=== PATIENT | male | born 1975 | race Caucasian/White ===

== ENCOUNTER 2022-07-14 16:08 | Inpatient (IN) | payer MEDICARE, MEDICAID ==
[~2022-07-14] VITALS: Ht 167.6 cm; Wt 95.7 kg
[~2022-07-14 16:08] MED LIST: ASEN10TA14 SL; ATOR40TA28 PO; BUPR-93 PO; CETI10CA PO; DIVA-112 PO; DOXA4TAB2 PO; ESCI20TA87 PO; FLUT220HFA IH; INSU100C6 SQ; LEVO100T4 PO; LORA1TAB3 PO; METO25 PO; MONT-35 PO; NIAC250T9 PO; QUET100T PO; TOPI200T PO; TRAZ-252 PO; ZOLP10TA8 PO; [UNRECOGNIZED DRUG - CODE] PO
[2022-07-14] MEDS ORDERED: OLAN10TA74 PO (17:45)
[2022-07-14] MEDS ORDERED: FINA-27 PO (17:45)
[2022-07-14] MEDS ORDERED: BUSP10TA23 PO (17:45)
[2022-07-14] MEDS ORDERED: LURA60TA PO (17:45)
[2022-07-14 17:51] LABS: APPEARANCE,URINE CLEAR (CLEAR); BILIRUBIN,URINE NEGATIVE (NEGATIVE); GLUCOSE, URINE (UA) >=1000 mg/dL (NEGATIVE); KETONES,URINE TRACE mg/dL (NEGATIVE); LEUKOCYTE ESTERASE ,URINE NEGATIVE (NEGATIVE); NITRATE,URINE NEGATIVE (NEGATIVE); OCCULT BLOOD,URINE NEGATIVE (NEGATIVE); PH,URINE 5.5 (5.0-8.0); PROTEIN,URINE TRACE mg/dL (NEGATIVE); SPECIFIC GRAVITIY, URINE 1.032 (1.003-1.030); UROBILINOGEN,URINE <=1.0 mg/dL (<=1.0)
[2022-07-14 17:56] LABS: AMPHET/METH SCREEN,URINE NEGATIVE (NEGATIVE); BARBITURATE SCREEN, URINE NEGATIVE (NEGATIVE); BENZODIAZEPINES SCREEN,URINE NEGATIVE (NEGATIVE); CANNABINOID SCREEN,URINE NEGATIVE (NEGATIVE); COCAINE SCREEN,URINE NEGATIVE (NEGATIVE); METHADONE SCREEN, URINE NEGATIVE (NEGATIVE); OPIATE SCREEN,URINE NEGATIVE (NEGATIVE); PHENCYCLIDINE SCREEN,URINE NEGATIVE (NEGATIVE)
[2022-07-14 18:04] LABS: NEUTROPHILS # (AUTO) 6.9 K/uL (1.8-7.7)
[2022-07-14 18:20] LABS: BACTERIA,URINE None Seen /HPF (None Seen); CALCIUM OXALATE CRYSTALS,UR Few /LPF (None Seen); RBC,URINE None Seen /HPF (0-2)
[2022-07-14 18:21] LABS: WBC,URINE 0-2 /HPF (0-5)
[2022-07-14 18:23] LABS: BASOPHILS % (AUTO) 0.6 % (0.0-2.0); EOSINOPHILS % (AUTO) 1.4 % (1.0-6.0); HEMATOCRIT 48.2 % (41-53); HEMOGLOBIN 16.5 g/dL (13.5-17.5); LYMPHOCYTES # (AUTO) 2.2 K/uL (1.0-4.8); LYMPHOCYTES % (AUTO) 21.3 % (22.0-44.0); MEAN CORPUSCULAR HEMOGLOBIN 31.4 pg (26.0-34.0); MEAN CORPUSCULAR HGB CONC 34.2 G/dL (31.0-37.0); MEAN CORPUSCULAR VOLUME 92 fL (80-100); NEUTROPHILS % (AUTO) 66.7 % (40.0-70.0); PLATELET COUNT (AUTO) 160 K/uL (150-450); RED BLOOD CELL COUNT(AUTO) 5.24 MIL/uL (4.50-5.90)
[2022-07-14 18:35] LABS: ANION GAP 5 mmol/L (8-16); CALCIUM, TOTAL 9.2 mg/dL (8.8-10.5); CARBON DIOXIDE 27 mmol/L (22-29); CHLORIDE 104 mmol/L (98-107); GLUCOSE,RANDOM 184 mg/dL (70-110); POTASSIUM 3.8 mmol/L (3.5-5.1); SODIUM SERUM 136 mmol/L (136-145); UREA NITROGEN, BLOOD 12 mg/dL (7-18)
[2022-07-14 18:36] LABS: GLOMERULAR FILTR. RATE CALC > 60 mL/min (>60)
[2022-07-14 18:46] LABS: COVID AG,FIA SOURCE NASOPHARYNGEAL
[2022-07-14 18:49] LABS: ALANINE AMINOTRANSFERASE 29 U/L (12-78); ALKALINE PHOSPHATASE 90 U/L (46-116); ASPARTATE AMINOTRANSFERASE 20 U/L (15-37); BILIRUBIN,TOTAL 0.5 mg/dL (0.1-1.0); THYROID STIMULATING HORMONE 1.31 uIU/mL (0.36-3.74); TOTAL PROTEIN, SERUM 7.3 g/dL (6.4-8.2)
[2022-07-14 18:57] LABS: PLATELET MORPHOLOGY COMMENT LARGE PLTS PRESENT
[2022-07-14 19:06] LABS: CREATINE KINASE, TOTAL ONLY 84 U/L (39-308)
[2022-07-14] MEDS ORDERED: HALOPERIDOL 5 MG TABLET PO PRN (23:15)
[2022-07-15 02:23] VITALS: BP 139/89
[2022-07-15 02:36] VITALS: BP 139/89
[2022-07-15] MEDS ORDERED: MAGNESIUM HYDROXIDE SUSPENSION 30 ML UDCUP PO PRN (07:15)
[2022-07-15] MEDS ORDERED: ACETAMINOPHEN 325 MG TABLET PO PRN (07:15)
[2022-07-15] MEDS ORDERED: MAG HYDROX/AL HYDROX/SIMETH ES 30 ML SUSPENSION UDCUP PO PRN (07:15)
[2022-07-15] MEDS ORDERED: PETROLATUM,WHITE 28 GM JELLY TP PRN (07:15)
[2022-07-15] MEDS ORDERED: IBUPROFEN 400 MG TABLET PO PRN (07:15)
[2022-07-15] MEDS ORDERED: NICOTINE 14 MG/24 HOUR PATCH TD PRN (07:15)
[2022-07-15] MEDS ORDERED: LOPERAMIDE HCL 2 MG CAPSULE PO PRN (07:15)
[2022-07-15] MEDS ORDERED: DOCUSATE SODIUM 100 MG CAPSULE PO PRN (07:15)
[2022-07-15] MEDS ORDERED: GuaiFENesin/D-METHORPHAN [SUGAR-FREE] 200-20MG/10 ML SYRUP UDCUP PO PRN (07:15)
[2022-07-15] MEDS ORDERED: CloNIDine HCL 0.1 MG TABLET PO PRN (07:15)
[2022-07-15] MEDS ORDERED: ALBUTEROL SULFATE HFA 90 MCG/PUFF 8 GM INHALER IH PRN (07:15)
[2022-07-15] MEDS ORDERED: ONDANSETRON HCL 4 MG TABLET PO PRN (07:15)
[2022-07-15 09:25] VITALS: BP 138/81
[2022-07-15] MEDS: MONTELUKAST SODIUM 10 MG TABLET PO SCH (09:28)
[2022-07-15] MEDS: FLUTICASONE/VILANTEROL 200-25 MCG/INH INHALER [14] IH SCH (09:28)
[2022-07-15] MEDS: FINASTERIDE 5 MG TABLET PO SCH (09:28)
[2022-07-15] MEDS: BuPROPion HCL 150 MG SR TABLET PO SCH (11:41)
[2022-07-15] MEDS: OLANZapine 10 MG TABLET PO SCH ×2 (11:42→21:05)
[2022-07-15] MEDS: BusPIRone HCL 10 MG TABLET PO SCH ×2 (12:47→16:31)
[2022-07-15] MEDS ORDERED: LURASIDONE HCL 60 MG TABLET PO SCH (17:30)
[2022-07-15] MEDS: ATORVASTATIN CALCIUM 40 MG TABLET PO SCH (21:05)
[2022-07-15] MEDS: TraZODone HCL 150 MG TABLET PO SCH (21:05)
[2022-07-15] MEDS: ZOLPIDEM TARTRATE 10 MG TABLET PO PRN (21:45)
[2022-07-16] MEDS: BuPROPion HCL 150 MG SR TABLET PO SCH (08:17)
[2022-07-16] MEDS: FLUTICASONE/VILANTEROL 200-25 MCG/INH INHALER [14] IH SCH (08:17)
[2022-07-16] MEDS: FINASTERIDE 5 MG TABLET PO SCH (08:18)
[2022-07-16] MEDS: BusPIRone HCL 10 MG TABLET PO SCH ×3 (08:18→16:23)
[2022-07-16] MEDS: OLANZapine 10 MG TABLET PO SCH ×2 (08:19→21:03)
[2022-07-16] MEDS: MONTELUKAST SODIUM 10 MG TABLET PO SCH (10:10)
[2022-07-16 10:40] VITALS: BP 145/87
[2022-07-16] MEDS: MUPIROCIN CALCIUM 2% 22 GM OINTMENT NASAL SCH ×2 (12:08→16:24)
[2022-07-16 16:00] VITALS: BP 138/81
[2022-07-16] MEDS: LURASIDONE HCL 80 MG TABLET PO SCH (17:13)
[2022-07-16] MEDS: TraZODone HCL 150 MG TABLET PO SCH (21:03)
[2022-07-16] MEDS: ATORVASTATIN CALCIUM 40 MG TABLET PO SCH (21:04)
[2022-07-16] MEDS: ZOLPIDEM TARTRATE 10 MG TABLET PO PRN (21:55)
[2022-07-17] MEDS: FLUTICASONE/VILANTEROL 200-25 MCG/INH INHALER [14] IH SCH (08:30)
[2022-07-17] MEDS: MUPIROCIN CALCIUM 2% 22 GM OINTMENT NASAL SCH ×2 (08:30→17:03)
[2022-07-17] MEDS: BuPROPion HCL 150 MG SR TABLET PO SCH (08:30)
[2022-07-17] MEDS: FINASTERIDE 5 MG TABLET PO SCH (08:31)
[2022-07-17] MEDS: MONTELUKAST SODIUM 10 MG TABLET PO SCH (08:31)
[2022-07-17] MEDS: BusPIRone HCL 10 MG TABLET PO SCH ×3 (08:31→17:03)
[2022-07-17] MEDS: OLANZapine 10 MG TABLET PO SCH ×2 (08:32→20:33)
[2022-07-17 10:02] VITALS: BP 142/93
[2022-07-17] MEDS: LURASIDONE HCL 80 MG TABLET PO SCH (17:03)
[2022-07-17 17:05] VITALS: BP 131/77
[2022-07-17] MEDS: TraZODone HCL 150 MG TABLET PO SCH (20:33)
[2022-07-17] MEDS: ATORVASTATIN CALCIUM 40 MG TABLET PO SCH (20:33)
[2022-07-18] MEDS: BusPIRone HCL 10 MG TABLET PO SCH ×4 (09:00→18:22)
[2022-07-18] MEDS: OLANZapine 10 MG TABLET PO SCH ×2 (09:28→20:40)
[2022-07-18] MEDS: FLUTICASONE/VILANTEROL 200-25 MCG/INH INHALER [14] IH SCH (09:29)
[2022-07-18] MEDS: MUPIROCIN CALCIUM 2% 22 GM OINTMENT NASAL SCH ×2 (09:29→18:23)
[2022-07-18 11:05] VITALS: BP 155/93
[2022-07-18] MEDS: BuPROPion HCL 150 MG SR TABLET PO SCH (13:10)
[2022-07-18] MEDS: MONTELUKAST SODIUM 10 MG TABLET PO SCH (13:11)
[2022-07-18] MEDS: FINASTERIDE 5 MG TABLET PO SCH (13:11)
[2022-07-18] MEDS: LURASIDONE HCL 80 MG TABLET PO SCH (18:22)
[2022-07-18] MEDS: TraZODone HCL 150 MG TABLET PO SCH (20:40)
[2022-07-18] MEDS: ATORVASTATIN CALCIUM 40 MG TABLET PO SCH (20:41)
[2022-07-19] MEDS: OLANZapine 10 MG TABLET PO SCH ×2 (09:00→20:30)
[2022-07-19] MEDS: BuPROPion HCL 150 MG SR TABLET PO SCH (09:00)
[2022-07-19] MEDS: FINASTERIDE 5 MG TABLET PO SCH (09:01)
[2022-07-19] MEDS: BusPIRone HCL 10 MG TABLET PO SCH ×3 (09:01→17:16)
[2022-07-19] MEDS: MUPIROCIN CALCIUM 2% 22 GM OINTMENT NASAL SCH ×2 (09:02→17:16)
[2022-07-19] MEDS: FLUTICASONE/VILANTEROL 200-25 MCG/INH INHALER [14] IH SCH (09:03)
[2022-07-19] MEDS: MONTELUKAST SODIUM 10 MG TABLET PO SCH (09:56)
[2022-07-19 11:08] VITALS: BP 152/90
[2022-07-19 16:13] VITALS: BP 159/92
[2022-07-19] MEDS: LURASIDONE HCL 80 MG TABLET PO SCH (17:25)
[2022-07-19] MEDS: ATORVASTATIN CALCIUM 40 MG TABLET PO SCH (20:30)
[2022-07-19] MEDS: TraZODone HCL 150 MG TABLET PO SCH (20:30)
[2022-07-20 07:07] LABS: CHOL/HDL RATIO 3.5 (4.2-7.3)
[2022-07-20 07:15] LABS: HEMOGLOBIN A1C 7.6 % (3.8-5.6)
[2022-07-20 07:42] LABS: COVID AG,FIA SOURCE NASAL SWAB
[2022-07-20] MEDS: FLUTICASONE/VILANTEROL 200-25 MCG/INH INHALER [14] IH SCH (08:40)
[2022-07-20] MEDS: MUPIROCIN CALCIUM 2% 22 GM OINTMENT NASAL SCH ×2 (08:41→17:23)
[2022-07-20] MEDS: BuPROPion HCL 150 MG SR TABLET PO SCH (08:42)
[2022-07-20] MEDS: BusPIRone HCL 10 MG TABLET PO SCH ×3 (08:42→17:23)
[2022-07-20 08:43] VITALS: BP 148/91
[2022-07-20] MEDS: FINASTERIDE 5 MG TABLET PO SCH (08:43)
[2022-07-20] MEDS: MONTELUKAST SODIUM 10 MG TABLET PO SCH (08:44)
[2022-07-20] MEDS: OLANZapine 10 MG TABLET PO SCH ×2 (08:45→20:15)
[2022-07-20 16:26] VITALS: BP 154/87
[2022-07-20] MEDS: LURASIDONE HCL 80 MG TABLET PO SCH (17:28)
[2022-07-20] MEDS: ATORVASTATIN CALCIUM 40 MG TABLET PO SCH (20:15)
[2022-07-20] MEDS: TraZODone HCL 150 MG TABLET PO SCH (20:15)
[2022-07-20 20:16] VITALS: BP 148/77
[2022-07-21 08:41] VITALS: BP 142/94
[2022-07-21] MEDS: OLANZapine 10 MG TABLET PO SCH ×2 (09:05→20:36)
[2022-07-21] MEDS: BusPIRone HCL 10 MG TABLET PO SCH ×3 (09:06→17:41)
[2022-07-21] MEDS: MUPIROCIN CALCIUM 2% 22 GM OINTMENT NASAL SCH (09:06)
[2022-07-21] MEDS: MONTELUKAST SODIUM 10 MG TABLET PO SCH (09:06)
[2022-07-21] MEDS: BuPROPion HCL 150 MG SR TABLET PO SCH (09:06)
[2022-07-21] MEDS: FINASTERIDE 5 MG TABLET PO SCH (09:06)
[2022-07-21] MEDS: FLUTICASONE/VILANTEROL 200-25 MCG/INH INHALER [14] IH SCH (09:06)
[2022-07-21 16:58] VITALS: BP 139/87
[2022-07-21] MEDS: LURASIDONE HCL 80 MG TABLET PO SCH (17:40)
[2022-07-21] MEDS: TraZODone HCL 150 MG TABLET PO SCH (20:36)
[2022-07-21] MEDS: ATORVASTATIN CALCIUM 40 MG TABLET PO SCH (20:36)
[2022-07-22] MEDS: OLANZapine 10 MG TABLET PO SCH ×2 (09:39→20:58)
[2022-07-22] MEDS: BusPIRone HCL 10 MG TABLET PO SCH ×3 (09:39→16:32)
[2022-07-22] MEDS: BuPROPion HCL 150 MG SR TABLET PO SCH (09:40)
[2022-07-22] MEDS: FINASTERIDE 5 MG TABLET PO SCH (09:40)
[2022-07-22] MEDS: FLUTICASONE/VILANTEROL 200-25 MCG/INH INHALER [14] IH SCH (09:40)
[2022-07-22] MEDS: MONTELUKAST SODIUM 10 MG TABLET PO SCH (09:41)
[2022-07-22 09:55] VITALS: BP 153/93
[2022-07-22] MEDS: LURASIDONE HCL 80 MG TABLET PO SCH (16:32)
[2022-07-22 17:32] VITALS: BP 144/84
[2022-07-22] MEDS: TraZODone HCL 150 MG TABLET PO SCH (20:58)
[2022-07-22] MEDS: ATORVASTATIN CALCIUM 40 MG TABLET PO SCH (20:58)
[2022-07-22] MEDS: ZOLPIDEM TARTRATE 10 MG TABLET PO PRN (22:09)
[2022-07-23 09:00] VITALS: BP 137/82
[2022-07-23] MEDS: OLANZapine 10 MG TABLET PO SCH ×2 (09:04→20:30)
[2022-07-23] MEDS: BusPIRone HCL 10 MG TABLET PO SCH ×3 (09:04→16:20)
[2022-07-23] MEDS: BuPROPion HCL 150 MG SR TABLET PO SCH (09:04)
[2022-07-23] MEDS: FLUTICASONE/VILANTEROL 200-25 MCG/INH INHALER [14] IH SCH (09:11)
[2022-07-23] MEDS: FINASTERIDE 5 MG TABLET PO SCH (09:11)
[2022-07-23] MEDS: MONTELUKAST SODIUM 10 MG TABLET PO SCH (10:02)
[2022-07-23 16:08] VITALS: BP 145/80
[2022-07-23] MEDS: LURASIDONE HCL 80 MG TABLET PO SCH (16:20)
[2022-07-23] MEDS: TraZODone HCL 150 MG TABLET PO SCH (20:30)
[2022-07-23] MEDS: ATORVASTATIN CALCIUM 40 MG TABLET PO SCH (20:30)
[2022-07-23] MEDS: ZOLPIDEM TARTRATE 10 MG TABLET PO PRN (21:13)
[2022-07-24 08:15] VITALS: BP 156/81
[2022-07-24] MEDS: BuPROPion HCL 150 MG SR TABLET PO SCH (09:34)
[2022-07-24] MEDS: FLUTICASONE/VILANTEROL 200-25 MCG/INH INHALER [14] IH SCH (09:34)
[2022-07-24] MEDS: MONTELUKAST SODIUM 10 MG TABLET PO SCH (09:34)
[2022-07-24] MEDS: FINASTERIDE 5 MG TABLET PO SCH (09:34)
[2022-07-24] MEDS: BusPIRone HCL 10 MG TABLET PO SCH ×3 (09:35→17:42)
[2022-07-24] MEDS: OLANZapine 10 MG TABLET PO SCH ×2 (09:38→20:21)
[2022-07-24 16:17] VITALS: BP 122/69
[2022-07-24] MEDS: LURASIDONE HCL 80 MG TABLET PO SCH (17:41)
[2022-07-24] MEDS: GlipiZIDE 5 MG TABLET PO SCH (17:42)
[2022-07-24] MEDS: ATORVASTATIN CALCIUM 40 MG TABLET PO SCH (20:21)
[2022-07-24] MEDS: TraZODone HCL 150 MG TABLET PO SCH (20:21)
[2022-07-25] MEDS: GlipiZIDE 5 MG TABLET PO SCH ×2 (06:50→16:34)
[2022-07-25] MEDS: BusPIRone HCL 10 MG TABLET PO SCH ×3 (08:16→16:33)
[2022-07-25] MEDS: BuPROPion HCL 150 MG SR TABLET PO SCH (08:16)
[2022-07-25] MEDS: FINASTERIDE 5 MG TABLET PO SCH (08:17)
[2022-07-25] MEDS: FLUTICASONE/VILANTEROL 200-25 MCG/INH INHALER [14] IH SCH (08:18)
[2022-07-25] MEDS: OLANZapine 10 MG TABLET PO SCH ×2 (08:18→20:36)
[2022-07-25] MEDS: AmLODIPine BESYLATE 5 MG TABLET PO SCH (08:22)
[2022-07-25 08:54] VITALS: BP 149/82
[2022-07-25] MEDS: MONTELUKAST SODIUM 10 MG TABLET PO SCH (10:04)
[2022-07-25 16:04] VITALS: BP 150/83
[2022-07-25] MEDS: LURASIDONE HCL 80 MG TABLET PO SCH (16:36)
[2022-07-25] MEDS: TraZODone HCL 150 MG TABLET PO SCH (20:36)
[2022-07-25] MEDS: ATORVASTATIN CALCIUM 40 MG TABLET PO SCH (20:36)
[2022-07-25] MEDS: ZOLPIDEM TARTRATE 10 MG TABLET PO PRN (21:45)
[2022-07-26] MEDS: GlipiZIDE 5 MG TABLET PO SCH ×2 (06:13→17:15)
[2022-07-26 08:26] VITALS: BP 136/89
[2022-07-26] MEDS: FINASTERIDE 5 MG TABLET PO SCH (09:01)
[2022-07-26] MEDS: BuPROPion HCL 150 MG SR TABLET PO SCH (09:01)
[2022-07-26] MEDS: AmLODIPine BESYLATE 5 MG TABLET PO SCH (09:01)
[2022-07-26] MEDS: FLUTICASONE/VILANTEROL 200-25 MCG/INH INHALER [14] IH SCH (09:02)
[2022-07-26] MEDS: OLANZapine 10 MG TABLET PO SCH ×2 (09:02→20:51)
[2022-07-26] MEDS: BusPIRone HCL 10 MG TABLET PO SCH ×3 (09:02→17:15)
[2022-07-26] MEDS: MONTELUKAST SODIUM 10 MG TABLET PO SCH (09:02)
[2022-07-26 17:13] VITALS: BP 118/72
[2022-07-26] MEDS: LURASIDONE HCL 80 MG TABLET PO SCH (17:15)
[2022-07-26] MEDS: TraZODone HCL 150 MG TABLET PO SCH (20:51)
[2022-07-26] MEDS: ATORVASTATIN CALCIUM 40 MG TABLET PO SCH (20:51)
[2022-07-27] MEDS: GlipiZIDE 5 MG TABLET PO SCH ×2 (06:14→16:31)
[2022-07-27 06:51] LABS: COVID AG,FIA SOURCE NASAL SWAB
[2022-07-27] MEDS: BusPIRone HCL 10 MG TABLET PO SCH ×3 (08:27→16:31)
[2022-07-27] MEDS: AmLODIPine BESYLATE 5 MG TABLET PO SCH (08:27)
[2022-07-27] MEDS: OLANZapine 10 MG TABLET PO SCH ×2 (08:27→20:56)
[2022-07-27] MEDS: BuPROPion HCL 150 MG SR TABLET PO SCH (08:28)
[2022-07-27] MEDS: FINASTERIDE 5 MG TABLET PO SCH (08:29)
[2022-07-27] MEDS: MONTELUKAST SODIUM 10 MG TABLET PO SCH (08:29)
[2022-07-27] MEDS: FLUTICASONE/VILANTEROL 200-25 MCG/INH INHALER [14] IH SCH (08:34)
[2022-07-27 09:00] VITALS: BP 131/82
[2022-07-27] MEDS: LURASIDONE HCL 80 MG TABLET PO SCH (16:31)
[2022-07-27] MEDS: ATORVASTATIN CALCIUM 40 MG TABLET PO SCH (20:56)
[2022-07-27] MEDS: TraZODone HCL 150 MG TABLET PO SCH (20:56)
[2022-07-28] MEDS: GlipiZIDE 5 MG TABLET PO SCH ×2 (06:38→16:23)
[2022-07-28 08:52] VITALS: BP 148/83
[2022-07-28] MEDS: AmLODIPine BESYLATE 5 MG TABLET PO SCH (09:24)
[2022-07-28] MEDS: BuPROPion HCL 150 MG SR TABLET PO SCH (09:25)
[2022-07-28] MEDS: MONTELUKAST SODIUM 10 MG TABLET PO SCH (09:25)
[2022-07-28] MEDS: OLANZapine 10 MG TABLET PO SCH ×2 (09:25→21:18)
[2022-07-28] MEDS: BusPIRone HCL 10 MG TABLET PO SCH ×3 (09:25→16:23)
[2022-07-28] MEDS: FINASTERIDE 5 MG TABLET PO SCH (09:26)
[2022-07-28] MEDS: FLUTICASONE/VILANTEROL 200-25 MCG/INH INHALER [14] IH SCH (09:27)
[2022-07-28 16:05] VITALS: BP 121/83
[2022-07-28] MEDS: LURASIDONE HCL 80 MG TABLET PO SCH (16:24)
[2022-07-28] MEDS: TraZODone HCL 150 MG TABLET PO SCH (21:18)
[2022-07-28] MEDS: ATORVASTATIN CALCIUM 40 MG TABLET PO SCH (21:18)
[2022-07-29] MEDS: GlipiZIDE 5 MG TABLET PO SCH ×2 (06:53→16:12)
[2022-07-29 08:30] VITALS: BP 125/81
[2022-07-29] MEDS: AmLODIPine BESYLATE 5 MG TABLET PO SCH (08:54)
[2022-07-29] MEDS: FINASTERIDE 5 MG TABLET PO SCH (08:54)
[2022-07-29] MEDS: BusPIRone HCL 10 MG TABLET PO SCH ×3 (08:54→16:13)
[2022-07-29] MEDS: MONTELUKAST SODIUM 10 MG TABLET PO SCH (08:54)
[2022-07-29] MEDS: OLANZapine 10 MG TABLET PO SCH ×2 (08:54→20:50)
[2022-07-29] MEDS: BuPROPion HCL 150 MG SR TABLET PO SCH (08:55)
[2022-07-29] MEDS: FLUTICASONE/VILANTEROL 200-25 MCG/INH INHALER [14] IH SCH (08:56)
[2022-07-29] MEDS: LURASIDONE HCL 80 MG TABLET PO SCH (16:39)
[2022-07-29 17:35] VITALS: BP 116/73
[2022-07-29] MEDS: TraZODone HCL 150 MG TABLET PO SCH (20:50)
[2022-07-29] MEDS: ATORVASTATIN CALCIUM 40 MG TABLET PO SCH (20:50)
[2022-07-30] MEDS: GlipiZIDE 5 MG TABLET PO SCH ×2 (06:20→16:33)
[2022-07-30] MEDS: FLUTICASONE/VILANTEROL 200-25 MCG/INH INHALER [14] IH SCH (08:38)
[2022-07-30] MEDS: MONTELUKAST SODIUM 10 MG TABLET PO SCH (08:38)
[2022-07-30] MEDS: BuPROPion HCL 150 MG SR TABLET PO SCH (08:38)
[2022-07-30] MEDS: FINASTERIDE 5 MG TABLET PO SCH (08:39)
[2022-07-30] MEDS: BusPIRone HCL 10 MG TABLET PO SCH ×3 (08:40→16:33)
[2022-07-30] MEDS: AmLODIPine BESYLATE 5 MG TABLET PO SCH (08:41)
[2022-07-30] MEDS: OLANZapine 10 MG TABLET PO SCH ×2 (08:41→20:56)
[2022-07-30 08:43] VITALS: BP 133/77
[2022-07-30] MEDS: LURASIDONE HCL 80 MG TABLET PO SCH (16:33)
[2022-07-30 16:37] VITALS: BP 99/70
[2022-07-30] MEDS: TraZODone HCL 150 MG TABLET PO SCH (20:56)
[2022-07-30] MEDS: ATORVASTATIN CALCIUM 40 MG TABLET PO SCH (20:56)
[2022-07-31] MEDS: GlipiZIDE 5 MG TABLET PO SCH ×2 (06:35→17:40)
[2022-07-31 08:57] VITALS: BP 138/89
[2022-07-31] MEDS: BusPIRone HCL 10 MG TABLET PO SCH ×3 (09:23→17:40)
[2022-07-31] MEDS: AmLODIPine BESYLATE 5 MG TABLET PO SCH (09:23)
[2022-07-31] MEDS: OLANZapine 10 MG TABLET PO SCH ×2 (09:23→20:36)
[2022-07-31] MEDS: FLUTICASONE/VILANTEROL 200-25 MCG/INH INHALER [14] IH SCH (09:24)
[2022-07-31] MEDS: FINASTERIDE 5 MG TABLET PO SCH (09:24)
[2022-07-31] MEDS: MONTELUKAST SODIUM 10 MG TABLET PO SCH (09:24)
[2022-07-31] MEDS: BuPROPion HCL 150 MG SR TABLET PO SCH (09:24)
[2022-07-31 17:02] VITALS: BP 117/64
[2022-07-31] MEDS: LURASIDONE HCL 80 MG TABLET PO SCH (17:40)
[2022-07-31] MEDS: ATORVASTATIN CALCIUM 40 MG TABLET PO SCH (20:36)
[2022-07-31] MEDS: TraZODone HCL 150 MG TABLET PO SCH (20:36)
[2022-08-01] MEDS: GlipiZIDE 5 MG TABLET PO SCH ×2 (06:34→18:58)
[2022-08-01 08:00] VITALS: BP 145/85
[2022-08-01] MEDS: OLANZapine 10 MG TABLET PO SCH ×2 (10:41→21:14)
[2022-08-01] MEDS: BusPIRone HCL 10 MG TABLET PO SCH ×3 (10:41→18:58)
[2022-08-01] MEDS: MONTELUKAST SODIUM 10 MG TABLET PO SCH (10:41)
[2022-08-01] MEDS: FLUTICASONE/VILANTEROL 200-25 MCG/INH INHALER [14] IH SCH (10:41)
[2022-08-01] MEDS: AmLODIPine BESYLATE 5 MG TABLET PO SCH (10:42)
[2022-08-01] MEDS: BuPROPion HCL 150 MG SR TABLET PO SCH (10:42)
[2022-08-01] MEDS: FINASTERIDE 5 MG TABLET PO SCH (10:42)
[2022-08-01 16:00] VITALS: BP 120/77
[2022-08-01] MEDS: LURASIDONE HCL 80 MG TABLET PO SCH (18:58)
[2022-08-01] MEDS: ATORVASTATIN CALCIUM 40 MG TABLET PO SCH (21:14)
[2022-08-01] MEDS: TraZODone HCL 150 MG TABLET PO SCH (21:14)
[2022-08-02] MEDS: GlipiZIDE 5 MG TABLET PO SCH ×2 (06:48→16:28)
[2022-08-02 08:30] VITALS: BP 140/82
[2022-08-02] MEDS: BusPIRone HCL 10 MG TABLET PO SCH ×3 (10:13→16:28)
[2022-08-02] MEDS: MONTELUKAST SODIUM 10 MG TABLET PO SCH (10:13)
[2022-08-02] MEDS: FINASTERIDE 5 MG TABLET PO SCH (10:13)
[2022-08-02] MEDS: BuPROPion HCL 150 MG SR TABLET PO SCH (10:13)
[2022-08-02] MEDS: FLUTICASONE/VILANTEROL 200-25 MCG/INH INHALER [14] IH SCH (10:13)
[2022-08-02] MEDS: OLANZapine 10 MG TABLET PO SCH ×2 (10:13→20:59)
[2022-08-02] MEDS: AmLODIPine BESYLATE 5 MG TABLET PO SCH (10:13)
[2022-08-02] MEDS: LURASIDONE HCL 80 MG TABLET PO SCH (16:28)
[2022-08-02 16:32] VITALS: BP 126/76
[2022-08-02] MEDS: ATORVASTATIN CALCIUM 40 MG TABLET PO SCH (20:59)
[2022-08-02] MEDS: TraZODone HCL 150 MG TABLET PO SCH (20:59)
[2022-08-03] MEDS: GlipiZIDE 5 MG TABLET PO SCH ×2 (06:26→18:23)
[2022-08-03 06:49] LABS: COVID AG,FIA SOURCE NASAL SWAB
[2022-08-03 06:56] LABS: ALANINE AMINOTRANSFERASE 38 U/L (12-78); ALBUMIN 3.8 g/dL (3.4-5.0); ALKALINE PHOSPHATASE 91 U/L (46-116); ANION GAP 7 mmol/L (8-16); ASPARTATE AMINOTRANSFERASE 19 U/L (15-37); BILIRUBIN,TOTAL 0.6 mg/dL (0.1-1.0); CALCIUM, TOTAL 8.8 mg/dL (8.8-10.5); CARBON DIOXIDE 29 mmol/L (22-29); CHLORIDE 103 mmol/L (98-107); CREATININE 1.07 mg/dL (0.60-1.30); GLOMERULAR FILTR. RATE CALC > 60 mL/min (>60); GLUCOSE,RANDOM 130 mg/dL (70-110); HEMOGLOBIN A1C 7.6 % (3.8-5.6); POTASSIUM 3.9 mmol/L (3.5-5.1); SODIUM SERUM 139 mmol/L (136-145); TOTAL PROTEIN, SERUM 6.9 g/dL (6.4-8.2); UREA NITROGEN, BLOOD 15 mg/dL (7-18)
[2022-08-03 08:00] VITALS: BP 137/81
[2022-08-03] MEDS: BuPROPion HCL 150 MG SR TABLET PO SCH (10:43)
[2022-08-03] MEDS: MONTELUKAST SODIUM 10 MG TABLET PO SCH (10:43)
[2022-08-03] MEDS: FINASTERIDE 5 MG TABLET PO SCH (10:43)
[2022-08-03] MEDS: BusPIRone HCL 10 MG TABLET PO SCH ×3 (10:43→18:23)
[2022-08-03] MEDS: FLUTICASONE/VILANTEROL 200-25 MCG/INH INHALER [14] IH SCH (10:44)
[2022-08-03] MEDS: OLANZapine 10 MG TABLET PO SCH ×2 (10:45→20:34)
[2022-08-03] MEDS: AmLODIPine BESYLATE 5 MG TABLET PO SCH (10:47)
[2022-08-03 17:16] VITALS: BP 126/85
[2022-08-03] MEDS: LURASIDONE HCL 80 MG TABLET PO SCH (18:22)
[2022-08-03] MEDS: ATORVASTATIN CALCIUM 40 MG TABLET PO SCH (20:33)
[2022-08-03] MEDS: TraZODone HCL 150 MG TABLET PO SCH (20:34)
[2022-08-04] MEDS: GlipiZIDE 5 MG TABLET PO SCH ×2 (06:16→16:39)
[2022-08-04] MEDS: AmLODIPine BESYLATE 5 MG TABLET PO SCH (09:42)
[2022-08-04] MEDS: MONTELUKAST SODIUM 10 MG TABLET PO SCH (09:42)
[2022-08-04] MEDS: BuPROPion HCL 150 MG SR TABLET PO SCH (09:42)
[2022-08-04] MEDS: OLANZapine 10 MG TABLET PO SCH ×2 (09:42→20:41)
[2022-08-04] MEDS: FLUTICASONE/VILANTEROL 200-25 MCG/INH INHALER [14] IH SCH (09:42)
[2022-08-04] MEDS: BusPIRone HCL 10 MG TABLET PO SCH ×3 (09:42→16:39)
[2022-08-04] MEDS: FINASTERIDE 5 MG TABLET PO SCH (09:44)
[2022-08-04] MEDS: LURASIDONE HCL 80 MG TABLET PO SCH (16:39)
[2022-08-04 16:42] VITALS: BP 130/87
[2022-08-04] MEDS: TraZODone HCL 150 MG TABLET PO SCH (20:41)
[2022-08-04] MEDS: ATORVASTATIN CALCIUM 40 MG TABLET PO SCH (20:41)
[2022-08-05] MEDS: GlipiZIDE 5 MG TABLET PO SCH ×2 (06:53→16:59)
[2022-08-05] MEDS: FLUTICASONE/VILANTEROL 200-25 MCG/INH INHALER [14] IH SCH (08:50)
[2022-08-05] MEDS: FINASTERIDE 5 MG TABLET PO SCH (08:50)
[2022-08-05] MEDS: BuPROPion HCL 150 MG SR TABLET PO SCH (08:50)
[2022-08-05] MEDS: BusPIRone HCL 10 MG TABLET PO SCH ×3 (08:50→16:59)
[2022-08-05] MEDS: OLANZapine 10 MG TABLET PO SCH ×2 (08:52→21:47)
[2022-08-05] MEDS: AmLODIPine BESYLATE 5 MG TABLET PO SCH (08:52)
[2022-08-05 09:55] VITALS: BP 144/80
[2022-08-05] MEDS: MONTELUKAST SODIUM 10 MG TABLET PO SCH (10:23)
[2022-08-05 16:00] VITALS: BP 129/74
[2022-08-05] MEDS: LURASIDONE HCL 80 MG TABLET PO SCH (16:58)
[2022-08-05] MEDS: TraZODone HCL 150 MG TABLET PO SCH (21:47)
[2022-08-05] MEDS: ATORVASTATIN CALCIUM 40 MG TABLET PO SCH (21:47)
[2022-08-05] MEDS: ZOLPIDEM TARTRATE 10 MG TABLET PO PRN (22:20)
[2022-08-06] MEDS: GlipiZIDE 5 MG TABLET PO SCH ×2 (06:18→16:37)
[2022-08-06 08:50] VITALS: BP 143/87
[2022-08-06] MEDS: AmLODIPine BESYLATE 5 MG TABLET PO SCH (08:58)
[2022-08-06] MEDS: OLANZapine 10 MG TABLET PO SCH ×2 (08:58→21:14)
[2022-08-06] MEDS: BusPIRone HCL 10 MG TABLET PO SCH ×3 (08:59→16:36)
[2022-08-06] MEDS: FLUTICASONE/VILANTEROL 200-25 MCG/INH INHALER [14] IH SCH (08:59)
[2022-08-06] MEDS: BuPROPion HCL 150 MG SR TABLET PO SCH (08:59)
[2022-08-06] MEDS: MONTELUKAST SODIUM 10 MG TABLET PO SCH (08:59)
[2022-08-06] MEDS: FINASTERIDE 5 MG TABLET PO SCH (09:00)
[2022-08-06 16:14] VITALS: BP 129/79
[2022-08-06] MEDS: LURASIDONE HCL 80 MG TABLET PO SCH (16:36)
[2022-08-06] MEDS: TraZODone HCL 150 MG TABLET PO SCH (21:13)
[2022-08-06] MEDS: ATORVASTATIN CALCIUM 40 MG TABLET PO SCH (21:14)
[2022-08-07] MEDS: GlipiZIDE 5 MG TABLET PO SCH ×2 (06:50→17:09)
[2022-08-07] MEDS: BusPIRone HCL 10 MG TABLET PO SCH ×3 (08:51→17:09)
[2022-08-07] MEDS: OLANZapine 10 MG TABLET PO SCH ×2 (08:51→20:31)
[2022-08-07] MEDS: AmLODIPine BESYLATE 5 MG TABLET PO SCH (08:51)
[2022-08-07] MEDS: FINASTERIDE 5 MG TABLET PO SCH (08:51)
[2022-08-07] MEDS: FLUTICASONE/VILANTEROL 200-25 MCG/INH INHALER [14] IH SCH (08:52)
[2022-08-07] MEDS: BuPROPion HCL 150 MG SR TABLET PO SCH (08:52)
[2022-08-07 08:53] VITALS: BP 141/77
[2022-08-07] MEDS: MONTELUKAST SODIUM 10 MG TABLET PO SCH (10:08)
[2022-08-07 16:03] VITALS: BP 134/74
[2022-08-07] MEDS: LURASIDONE HCL 80 MG TABLET PO SCH (17:12)
[2022-08-07] MEDS: ATORVASTATIN CALCIUM 40 MG TABLET PO SCH (20:31)
[2022-08-07] MEDS: TraZODone HCL 150 MG TABLET PO SCH (20:31)
[2022-08-08] MEDS: GlipiZIDE 5 MG TABLET PO SCH ×2 (06:39→17:30)
[2022-08-08 08:00] VITALS: BP 132/86
[2022-08-08] MEDS: FLUTICASONE/VILANTEROL 200-25 MCG/INH INHALER [14] IH SCH (10:33)
[2022-08-08] MEDS: BusPIRone HCL 10 MG TABLET PO SCH ×3 (10:34→17:00)
[2022-08-08] MEDS: BuPROPion HCL 150 MG SR TABLET PO SCH (10:34)
[2022-08-08] MEDS: MONTELUKAST SODIUM 10 MG TABLET PO SCH (10:35)
[2022-08-08] MEDS: FINASTERIDE 5 MG TABLET PO SCH (10:35)
[2022-08-08] MEDS: AmLODIPine BESYLATE 5 MG TABLET PO SCH (10:37)
[2022-08-08] MEDS: OLANZapine 10 MG TABLET PO SCH ×2 (10:37→20:57)
[2022-08-08 16:00] VITALS: BP 120/73
[2022-08-08] MEDS: TraZODone HCL 150 MG TABLET PO SCH (17:30)
[2022-08-08] MEDS: LURASIDONE HCL 80 MG TABLET PO SCH (17:30)
[2022-08-08] MEDS: ZOLPIDEM TARTRATE 10 MG TABLET PO PRN (20:57)
[2022-08-08] MEDS: ATORVASTATIN CALCIUM 40 MG TABLET PO SCH (20:57)
[2022-08-09] MEDS: GlipiZIDE 5 MG TABLET PO SCH ×2 (06:44→17:44)
[2022-08-09 08:00] VITALS: BP 159/94
[2022-08-09] MEDS: FLUTICASONE/VILANTEROL 200-25 MCG/INH INHALER [14] IH SCH (10:08)
[2022-08-09] MEDS: MONTELUKAST SODIUM 10 MG TABLET PO SCH (10:09)
[2022-08-09] MEDS: BusPIRone HCL 10 MG TABLET PO SCH ×3 (10:09→17:44)
[2022-08-09] MEDS: FINASTERIDE 5 MG TABLET PO SCH (10:09)
[2022-08-09] MEDS: BuPROPion HCL 150 MG SR TABLET PO SCH (10:09)
[2022-08-09] MEDS: AmLODIPine BESYLATE 5 MG TABLET PO SCH (10:13)
[2022-08-09] MEDS: OLANZapine 10 MG TABLET PO SCH ×2 (10:18→20:44)
[2022-08-09 16:29] VITALS: BP 118/77
[2022-08-09] MEDS: LURASIDONE HCL 80 MG TABLET PO SCH (17:44)
[2022-08-09] MEDS: ATORVASTATIN CALCIUM 40 MG TABLET PO SCH (20:44)
[2022-08-09] MEDS: TraZODone HCL 150 MG TABLET PO SCH (20:44)
[2022-08-10] MEDS: GlipiZIDE 5 MG TABLET PO SCH ×2 (06:09→17:10)
[2022-08-10 08:00] LABS: COVID AG,FIA SOURCE NASAL SWAB
[2022-08-10 08:03] VITALS: BP 141/87
[2022-08-10] MEDS: BuPROPion HCL 150 MG SR TABLET PO SCH (08:45)
[2022-08-10] MEDS: FLUTICASONE/VILANTEROL 200-25 MCG/INH INHALER [14] IH SCH (08:45)
[2022-08-10] MEDS: OLANZapine 10 MG TABLET PO SCH ×2 (08:45→20:21)
[2022-08-10] MEDS: BusPIRone HCL 10 MG TABLET PO SCH ×3 (08:46→17:09)
[2022-08-10] MEDS: AmLODIPine BESYLATE 5 MG TABLET PO SCH (08:46)
[2022-08-10] MEDS: FINASTERIDE 5 MG TABLET PO SCH (08:46)
[2022-08-10] MEDS: MONTELUKAST SODIUM 10 MG TABLET PO SCH (09:45)
[2022-08-10 16:35] VITALS: BP 134/77
[2022-08-10] MEDS: LURASIDONE HCL 80 MG TABLET PO SCH (17:31)
[2022-08-10] MEDS: ATORVASTATIN CALCIUM 40 MG TABLET PO SCH (20:21)
[2022-08-10] MEDS: TraZODone HCL 150 MG TABLET PO SCH (20:21)
[2022-08-10 21:55] VITALS: BP 128/70
[2022-08-11] MEDS: GlipiZIDE 5 MG TABLET PO SCH ×2 (06:34→16:32)
[2022-08-11] MEDS: OLANZapine 10 MG TABLET PO SCH ×2 (08:05→20:09)
[2022-08-11] MEDS: AmLODIPine BESYLATE 5 MG TABLET PO SCH (08:05)
[2022-08-11] MEDS: FINASTERIDE 5 MG TABLET PO SCH (08:06)
[2022-08-11] MEDS: MONTELUKAST SODIUM 10 MG TABLET PO SCH (08:07)
[2022-08-11] MEDS: BuPROPion HCL 150 MG SR TABLET PO SCH (08:07)
[2022-08-11] MEDS: BusPIRone HCL 10 MG TABLET PO SCH ×3 (08:07→16:32)
[2022-08-11] MEDS: FLUTICASONE/VILANTEROL 200-25 MCG/INH INHALER [14] IH SCH (08:08)
[2022-08-11 09:08] VITALS: BP 142/85
[2022-08-11 16:20] VITALS: BP 125/77
[2022-08-11] MEDS: LURASIDONE HCL 80 MG TABLET PO SCH (16:31)
[2022-08-11] MEDS: TraZODone HCL 150 MG TABLET PO SCH (20:09)
[2022-08-11] MEDS: ATORVASTATIN CALCIUM 40 MG TABLET PO SCH (20:09)
[2022-08-12] MEDS: GlipiZIDE 5 MG TABLET PO SCH ×2 (06:49→16:13)
[2022-08-12 08:30] VITALS: BP 132/74
[2022-08-12] MEDS: FLUTICASONE/VILANTEROL 200-25 MCG/INH INHALER [14] IH SCH (08:52)
[2022-08-12] MEDS: BuPROPion HCL 150 MG SR TABLET PO SCH ×2 (08:52→16:13)
[2022-08-12] MEDS: MONTELUKAST SODIUM 10 MG TABLET PO SCH (08:52)
[2022-08-12] MEDS: FINASTERIDE 5 MG TABLET PO SCH (08:52)
[2022-08-12] MEDS: BusPIRone HCL 10 MG TABLET PO SCH ×3 (08:53→16:13)
[2022-08-12] MEDS: OLANZapine 10 MG TABLET PO SCH ×2 (08:53→20:28)
[2022-08-12] MEDS: AmLODIPine BESYLATE 5 MG TABLET PO SCH (08:53)
[2022-08-12 16:00] VITALS: BP 116/57
[2022-08-12] MEDS: LURASIDONE HCL 80 MG TABLET PO SCH (16:13)
[2022-08-12] MEDS: TraZODone HCL 150 MG TABLET PO SCH (20:28)
[2022-08-12] MEDS: ATORVASTATIN CALCIUM 40 MG TABLET PO SCH (20:28)
[2022-08-13] MEDS: GlipiZIDE 5 MG TABLET PO SCH ×2 (06:58→16:12)
[2022-08-13] MEDS: FLUTICASONE/VILANTEROL 200-25 MCG/INH INHALER [14] IH SCH (08:28)
[2022-08-13] MEDS: OLANZapine 10 MG TABLET PO SCH ×2 (08:29→21:30)
[2022-08-13] MEDS: BuPROPion HCL 150 MG SR TABLET PO SCH ×2 (08:29→16:12)
[2022-08-13] MEDS: AmLODIPine BESYLATE 5 MG TABLET PO SCH (08:30)
[2022-08-13] MEDS: FINASTERIDE 5 MG TABLET PO SCH (08:30)
[2022-08-13] MEDS: BusPIRone HCL 10 MG TABLET PO SCH ×3 (08:30→16:12)
[2022-08-13 08:37] VITALS: BP 148/83
[2022-08-13] MEDS: MONTELUKAST SODIUM 10 MG TABLET PO SCH (10:44)
[2022-08-13 16:21] VITALS: BP 109/65
[2022-08-13] MEDS: LURASIDONE HCL 80 MG TABLET PO SCH (16:57)
[2022-08-13 21:18] VITALS: BP 130/71
[2022-08-13] MEDS: ATORVASTATIN CALCIUM 40 MG TABLET PO SCH (21:30)
[2022-08-13] MEDS: TraZODone HCL 150 MG TABLET PO SCH (21:30)
[2022-08-14] MEDS: GlipiZIDE 5 MG TABLET PO SCH ×2 (06:34→16:26)
[2022-08-14 08:32] VITALS: BP 149/94
[2022-08-14] MEDS: FINASTERIDE 5 MG TABLET PO SCH (08:40)
[2022-08-14] MEDS: BuPROPion HCL 150 MG SR TABLET PO SCH ×2 (08:40→16:25)
[2022-08-14] MEDS: FLUTICASONE/VILANTEROL 200-25 MCG/INH INHALER [14] IH SCH (08:40)
[2022-08-14] MEDS: BusPIRone HCL 10 MG TABLET PO SCH ×3 (08:40→16:25)
[2022-08-14] MEDS: OLANZapine 10 MG TABLET PO SCH ×2 (08:41→21:10)
[2022-08-14] MEDS: AmLODIPine BESYLATE 5 MG TABLET PO SCH (08:41)
[2022-08-14] MEDS: MONTELUKAST SODIUM 10 MG TABLET PO SCH (10:34)
[2022-08-14] MEDS: LURASIDONE HCL 80 MG TABLET PO SCH (16:25)
[2022-08-14 16:53] VITALS: BP 122/69
[2022-08-14] MEDS: TraZODone HCL 150 MG TABLET PO SCH (21:10)
[2022-08-14] MEDS: ATORVASTATIN CALCIUM 40 MG TABLET PO SCH (21:10)
[2022-08-14 21:59] VITALS: BP 129/74
[2022-08-15] MEDS: GlipiZIDE 5 MG TABLET PO SCH ×2 (07:03→17:52)
[2022-08-15 08:00] VITALS: BP 124/71
[2022-08-15] MEDS: BusPIRone HCL 10 MG TABLET PO SCH ×3 (09:14→17:52)
[2022-08-15] MEDS: FLUTICASONE/VILANTEROL 200-25 MCG/INH INHALER [14] IH SCH (09:14)
[2022-08-15] MEDS: MONTELUKAST SODIUM 10 MG TABLET PO SCH (09:14)
[2022-08-15] MEDS: FINASTERIDE 5 MG TABLET PO SCH (09:15)
[2022-08-15] MEDS: ATORVASTATIN CALCIUM 40 MG TABLET PO SCH (09:15)
[2022-08-15] MEDS: BuPROPion HCL 150 MG SR TABLET PO SCH ×2 (09:15→17:52)
[2022-08-15] MEDS: AmLODIPine BESYLATE 5 MG TABLET PO SCH (09:19)
[2022-08-15] MEDS: OLANZapine 10 MG TABLET PO SCH ×2 (09:19→20:32)
[2022-08-15 16:46] VITALS: BP 118/72
[2022-08-15] MEDS: LURASIDONE HCL 80 MG TABLET PO SCH (17:52)
[2022-08-15] MEDS: LORazepam 2 MG TABLET PO PRN ×2 (17:57→22:10)
[2022-08-15] MEDS: TraZODone HCL 150 MG TABLET PO SCH (20:32)
[2022-08-15 21:32] VITALS: BP 131/84
[2022-08-16] MEDS: ZOLPIDEM TARTRATE 10 MG TABLET PO PRN (01:24)
[2022-08-16] MEDS: LORazepam 2 MG TABLET PO PRN ×4 (02:11→18:06)
[2022-08-16] MEDS: GlipiZIDE 5 MG TABLET PO SCH ×2 (05:51→16:49)
[2022-08-16] MEDS: AmLODIPine BESYLATE 5 MG TABLET PO SCH (08:17)
[2022-08-16] MEDS: OLANZapine 10 MG TABLET PO SCH ×2 (08:18→20:13)
[2022-08-16] MEDS: BuPROPion HCL 150 MG SR TABLET PO SCH ×2 (08:18→16:49)
[2022-08-16] MEDS: FLUTICASONE/VILANTEROL 200-25 MCG/INH INHALER [14] IH SCH (08:18)
[2022-08-16] MEDS: MONTELUKAST SODIUM 10 MG TABLET PO SCH (08:19)
[2022-08-16] MEDS: BusPIRone HCL 10 MG TABLET PO SCH ×3 (08:19→16:49)
[2022-08-16] MEDS: FINASTERIDE 5 MG TABLET PO SCH (08:20)
[2022-08-16 08:38] VITALS: BP 143/94
[2022-08-16 16:00] VITALS: BP 145/93
[2022-08-16] MEDS: LURASIDONE HCL 80 MG TABLET PO SCH (16:49)
[2022-08-16] MEDS: ATORVASTATIN CALCIUM 40 MG TABLET PO SCH (20:13)
[2022-08-16] MEDS: TraZODone HCL 150 MG TABLET PO SCH (20:13)
[2022-08-17] MEDS: GlipiZIDE 5 MG TABLET PO SCH (06:18)
[2022-08-17] MEDS: MONTELUKAST SODIUM 10 MG TABLET PO SCH (08:15)
[2022-08-17] MEDS: FINASTERIDE 5 MG TABLET PO SCH (08:15)
[2022-08-17] MEDS: BuPROPion HCL 150 MG SR TABLET PO SCH (08:15)
[2022-08-17] MEDS: BusPIRone HCL 10 MG TABLET PO SCH ×2 (08:15→12:20)
[2022-08-17] MEDS: OLANZapine 10 MG TABLET PO SCH (08:15)
[2022-08-17] MEDS: AmLODIPine BESYLATE 5 MG TABLET PO SCH (08:15)
[2022-08-17 08:22] LABS: COVID AG,FIA SOURCE NASAL SWAB
[2022-08-17] MEDS: FLUTICASONE/VILANTEROL 200-25 MCG/INH INHALER [14] IH SCH (08:41)
[2022-08-17 09:26] VITALS: BP 151/93
[2022-08-17] MEDS: LORazepam 2 MG TABLET PO PRN (09:30)
[2022-08-17] MEDS ORDERED: LURA80TA2 PO (10:40)
[2022-08-17] MEDS ORDERED: BUSP10TA23 PO (10:40)
[2022-08-17] MEDS ORDERED: OLAN10 PO (10:40)
[2022-08-17] MEDS ORDERED: TRAZ-283 PO (10:40)
[2022-08-17] MEDS ORDERED: AMLO-257 PO (11:09)
[2022-08-17] MEDS ORDERED: GLIP5TAB12 PO (11:10)
[2022-08-17] MEDS ORDERED: FLUT1BLS IH (11:11)
== END 2022-08-17 15:39 | DRG 885 ==
LOC: EMS 16:29 → 3EI 07-15 00:01 → 3EX 07-15 00:01 → UNDOADMIN 07-15 00:01
PROVIDERS: ADMIT Psychiatry & Neurology Child & Adolescent Psychiatry; ATTEND Psychiatry & Neurology Child & Adolescent Psychiatry
DX: F25.1 Schizoaffective disorder, depressive type (principal); I11.0 Hypertensive heart disease with heart failure; R45.851 Suicidal ideations; D64.9 Anemia, unspecified; F17.210 Nicotine dependence, cigarettes, uncomplicated; E03.9 Hypothyroidism, unspecified; E11.9 Type 2 diabetes mellitus without complications; E78.00 Pure hypercholesterolemia, unspecified; I50.9 Heart failure, unspecified; J44.9 Chronic obstructive pulmonary disease, unspecified; Z20.822 Contact with and (suspected) exposure to COVID-19; K21.9 Gastro-esophageal reflux disease without esophagitis; F41.9 Anxiety disorder, unspecified; N40.0 Benign prostatic hyperplasia without lower urinary tract symptoms; M10.9 Gout, unspecified; G89.29 Other chronic pain; M54.9 Dorsalgia, unspecified; Z88.8 Allergy status to other drugs, medicaments and biological substances; Z91.012 Allergy to eggs; Z91.011 Allergy to milk products; Z71.51 Drug abuse counseling and surveillance of drug abuser; Z59.00 Homelessness unspecified; Z91.199 Patient's noncompliance with other medical treatment and regimen due to unspecified reason; K59.00 Constipation, unspecified; M19.90 Unspecified osteoarthritis, unspecified site
CPT/HCPCS: 80053; 80061; 80307; 81001; 81003; 82550; 83036; 84443; 85025; 87081; 99285; G0378; G0480; Q9967